=== PATIENT | male | born 1960 ===

== ENCOUNTER 2017-01-02 10:16 | Inpatient (IN) | payer MEDICARE, MEDICAID ==
[2017-01-02 10:16] VITALS: BMI 21.5
[2017-01-02] MEDS ORDERED: Piperacillin/Tazobact 3.375 GM in Sodium Chloride 0.9% 100 ML IVPB STA (11:08)
--- NOTE | 2017-01-02 11:14 | ED PDOC ---
HPI: General Adult Time Seen by Provider: 01/02/17 10:36 Chief Complaint (Nursing): Upper Extremity Problem/Injury History Per: Patient Additional Complaint(s): Pt. states on Wednesday he was at home doing some house work when he suddenly noticed he was bleeding from the R 5th digit. Pt. is uncertain as to how he received the cut. Reports that he's developed redness, swelling, and pain to the area extending to the R wrist since then. Denies fever, numbness, tingling. Past Medical History Reviewed: Historical Data, Nursing Documentation, Vital Signs Vital Signs: Last Vital Signs Temp 98.4 F 01/02/17 17:47 Pulse 91 H 01/02/17 17:47 Resp 18 01/02/17 17:47 BP 112/71 01/02/17 17:47 Pulse Ox 97 01/02/17 17:47 - Medical History PMH: Asthma, HTN, Hyperlipidemia Denies: Diabetes - Family History Family History: States: No Known Family Hx - Home Medications Home Medications: Ambulatory Orders Medication Instructions Recorded Patient Own Control [Patient Own 1 IH DAILY 01/02/17 Control] Patient Own Control [Patient Own 1 tab PO DAILY 01/02/17 Control] Patient Own Control [Patient Own 1 tab PO DAILY 01/02/17 Control] - Allergies Allergies/Adverse Reactions: Allergies Allergy/AdvReac Type Severity Reaction Status Date / Time No Known Allergies Allergy Verified 01/02/17 10:43 Review of Systems ROS Statement: Except As Marked, All Systems Reviewed And Found Negative Musculoskeletal: Positive for: Hand Pain Physical Exam - Physical Exam Appears: Positive for: Well, Non-toxic, No Acute Distress Pulses-Radial (L): 2+ Pulses-Radial (R): 2+ Extremity: Positive for: Other (R hand: 5th digit on dorsal surface on proximal phalanx with superficial abrasion with swelling, surrounding erythema, and fluctuance; erythema extends towards dorsum of hand and slightly on to wrist; unable to fully extend R 5th digit; cap refill < 2 seconds of R 5th digit) Neurologic/Psych: Positive for: Alert, Oriented - Laboratory Results Result Diagrams: 01/02/17 12:00 01/02/17 12:35 - ECG O2 Sat by Pulse Oximetry: 98 - Radiology X-Ray: Interpreted by Me (R hand x-ray) X-Ray Interpretation: No Acute Disease - Progress ED Course And Treament: Labs ordered. CT upper extremity of R hand ordered. Zosyn IV, vancomycin IV ordered. Blood culture ordered. Hand xray ordered. CT of R hand: Abscess in the dorsal subcutaneous tissues of the fifth finger. Case d/w Dr. Chance, hand youth nutritional monitor, who take pt. to OR tomorrow for I&D. Requests that pt. be NPO after midnight. Case d/w Dr. Cifuentes, covering for Dr. Ha, and arrangements made for admission. Disposition - Clinical Impression Clinical Impression: Tenosynovitis of finger, Cellulitis and abscess of unspecified digit - Patient ED Disposition Is Patient to be Admitted: Yes - Disposition Disposition Time: 16:30 Condition: STABLE
[2017-01-02] MEDS ORDERED: Vancomycin 1 g Inj ONE (11:19)
[2017-01-02 11:31] LABS: VENOUS BLOOD GAS BASE EXCESS -1.6 mmol/L (0.0-2.0); VENOUS BLOOD GAS PCO2 32 mmHg (40-60); VENOUS BLOOD PH 7.44 (7.32-7.43)
[2017-01-02] MEDS ORDERED: Piperacillin/Tazobact 3.375 gm Inj IVPB ONE (12:10)
[2017-01-02 12:13] LABS: BASO % 0.3 % (0.0-2.0); EOS # 1.3 K/uL (0.0-0.7); EOS % 9.2 % (0.0-4.0); HEMATOCRIT 42.9 % (35.0-51.0); LYMPH # 1.6 K/uL (1.0-4.3); LYMPH % 11.1 % (20.0-40.0); MEAN CELL VOLUME 92.6 fl (80.0-94.0); MEAN CORPUSCULAR HEMOGLOBIN 31.5 pg (27.0-31.0); MEAN PLATELET VOLUME 8.9 fl (7.2-11.7); MONO # 1.6 K/uL (0.0-0.8); MONO % 10.7 % (0.0-10.0); NEUT # 10.1 K/uL (1.8-7.0); NEUT % 68.7 % (50.0-75.0); RED CELL DISTRIBUTION WIDTH 12.8 % (11.5-14.5); WHITE BLOOD COUNT 14.7 K/uL (4.8-10.8)
[2017-01-02 12:27] LABS: ALB/GLOB RATIO 1.3 (1.0-2.1); ALKALINE PHOSPHATASE 84 U/L (38-126); AST/SGOT 94 U/L (17-59); BILIRUBIN,TOTAL 2.8 mg/dl (0.2-1.3); BLOOD UREA NITROGEN 18 mg/dl (9-20); CALCIUM 9.6 mg/dL (8.4-10.2); CARBON DIOXIDE 24 mmol/L (22-30); CHLORIDE 102 mmol/L (98-107); GFR AFRICAN-AMERICAN > 60; GLUCOSE,RANDOM 89 mg/dL (75-110); SODIUM 137 mmol/l (132-148); TOTAL PROTEIN 9.6 G/DL (6.3-8.2)
[2017-01-02 12:34] LABS: ALT/SGPT < 6 U/L (21-72); POTASSIUM 7.2 MMOL/L (3.6-5.0)
[2017-01-02] MEDS ORDERED: Iohexol 300 100 ML IJ ONE (12:41)
[2017-01-02] MEDS ORDERED: Sodium Chloride 0.9% 50 ML IV ONE (12:42)
--- NOTE | 2017-01-02 13:41 | RAD ---
PROCEDURE: Right Hand Radiographs. HISTORY: trauma COMPARISON: None. FINDINGS: BONES: No evidence of acute displaced fracture nor dislocation. The osseous structures appear intact. No cortical destructive changes. . JOINTS: Normal. No osteoarthritic changes. SOFT TISSUES: There appears to be soft tissue swelling right 5th finger. Findings could represent cellulitis. . Soft tissue swelling extends dorsally over the 5th metacarpal. No radiopaque foreign bodies. OTHER FINDINGS: None. IMPRESSION: No evidence of acute displaced fracture nor dislocation. The osseous structures appear intact with no cortical destructive changes. Soft tissue swelling left 5th finger the likely representing cellulitis. The soft tissue swelling that extends dorsally over the 5th metacarpal as well. Clinical correlation recommended. There are no radiopaque foreign body seen. .
[2017-01-02] MEDS: Piperacillin/Tazobact 3.375 GM in Sodium Chloride 0.9% 100 ML IVPB SCH (17:00)
--- NOTE | 2017-01-02 22:13 | CP.PCM.CON ---
History of Present Illness - History of Present Illness History of Present Illness: ORTHOPEDIC CONSULT NOTE 56 year old greenlandic speaking male seen at bedside concerning left hand redness and swelling. Pt states on Wednesday, while doing house work. he noteice a bleeding from the rigth 5th digit without a notable inciting event. Reports that he's developed redness, swelling, and pain to the area extending to the R wrist since then. Denies fever, chill, nausea, vomiting, numbness, or tingling to the area. Has noted some discharge from site prior to arrival though non recently. Past Patient History - Past Social History Smoking Status: Never Smoked - CARDIAC Hx Cardiac Disorders: Yes (HTN/ High Cholesterol) - PULMONARY Hx Respiratory Disorders: Yes (Asthma) - PSYCHIATRIC Hx Substance Use: No - ANESTHESIA Hx Anesthesia: No Hx Anesthesia Reactions: No Hx Malignant Hyperthermia: No Meds Allergies/Adverse Reactions: Allergies Allergy/AdvReac Type Severity Reaction Status Date / Time No Known Allergies Allergy Verified 01/02/17 10:43 - Medications Medications: Current Medications Piperacillin Sod/Tazobactam (Sod 3.375 gm/ Sodium Chloride) 100 mls @ 100 mls/ hr IVPB Q8H SHAYY Physical Exam - Constitutional Appears: Well, Non-toxic, No Acute Distress - Extremities Exam Additional comments: RIGHT HAND FOCUSED Pulses intact, and digits well perfused. Erythema and swelling localized to medial dorsal surface of Focal point of swelling, erythema, and callor runs from 5th digit proximal interphalangeal joint to 5th metacarpo-phalangeal joint. Stable Keratotic crust noted proximal to proximal interphalangeal joint. Absent and prominent portal of entry. Absent purulent discharge. Results - Vital Signs Recent Vital Signs: Last Vital Signs Temp 98.4 F 01/02/17 19:42 Pulse 91 H 01/02/17 19:42 Resp 18 01/02/17 19:42 BP 112/71 01/02/17 19:42 Pulse Ox 92 L 01/02/17 19:42 - Labs Result Diagrams: 01/02/17 12:00 01/02/17 12:35 Assessment & Plan - Assessment and Plan (Free Text) Assessment: 56 year old male with right hand cellulitis and potential abscess. Plan: PT seen and evaluated. Discussed with attending, Dr. Chance who endorsed the final plan. Chart, labs, and vitals reviewed. Afebrile, WBC=14.7K. Pt placed NPO. Pt to go to OR Wednesday morning for Right hand incision and drainage procedure. Medical clearance from primary provider requested. Continue pain control. Continue IV abx. - Date & Time Date: 01/02/17 Time: 22:13
[2017-01-03] MEDS: Piperacillin/Tazobact 3.375 GM in Sodium Chloride 0.9% 100 ML IVPB SCH ×3 (00:41→17:39)
[2017-01-03 08:07] LABS: BASO % 0.4 % (0.0-2.0); EOS # 1.6 K/uL (0.0-0.7); EOS % 12.3 % (0.0-4.0); HEMATOCRIT 42.4 % (35.0-51.0); LYMPH # 1.4 K/uL (1.0-4.3); LYMPH % 11.1 % (20.0-40.0); MEAN CELL VOLUME 93.4 fl (80.0-94.0); MEAN CORPUSCULAR HEMOGLOBIN 30.7 pg (27.0-31.0); MEAN CORPUSCULAR HGB CONC 32.8 g/dL (33.0-37.0); MEAN PLATELET VOLUME 8.6 fl (7.2-11.7); MONO # 1.3 K/uL (0.0-0.8); MONO % 10.6 % (0.0-10.0); NEUT # 8.2 K/uL (1.8-7.0); NEUT % 65.6 % (50.0-75.0); RED CELL DISTRIBUTION WIDTH 12.8 % (11.5-14.5); WHITE BLOOD COUNT 12.6 K/uL (4.8-10.8)
[2017-01-03 08:22] LABS: ALB/GLOB RATIO 1.2 (1.0-2.1); ALKALINE PHOSPHATASE 70 U/L (38-126); ALT/SGPT 42 U/L (21-72); AST/SGOT 39 U/L (17-59); BILIRUBIN,TOTAL 0.7 mg/dl (0.2-1.3); BLOOD UREA NITROGEN 20 mg/dl (9-20); CALCIUM 9.1 mg/dL (8.4-10.2); CARBON DIOXIDE 26 mmol/L (22-30); CHLORIDE 101 mmol/L (98-107); CHOLESTEROL 122 mg/dL (0-199); GFR AFRICAN-AMERICAN > 60; GLUCOSE,RANDOM 104 mg/dL (75-110); POTASSIUM 3.8 MMOL/L (3.6-5.0); SODIUM 137 mmol/l (132-148); TOTAL PROTEIN 7.3 G/DL (6.3-8.2)
[2017-01-03 08:25] LABS: PARTIAL THROMBOPLASTIN TIME 30.4 SECONDS (23.3-32.5)
[2017-01-03 08:28] LABS: T4 8.13 ug/dl (5.5-11.0)
[2017-01-03 08:42] LABS: THYROID STIMULATING HORMONE 0.94 mIU/ML (0.46-4.68)
[2017-01-03] MEDS ORDERED: Lidocaine 1% Inj (20ml) ONE (10:15)
[2017-01-03] MEDS ORDERED: Povidone Iodine Topical 10% Sol ONE (10:17)
--- NOTE | 2017-01-03 13:35 | CT ---
PROCEDURE: CT of the right hand dated 01/02/2017 HISTORY: attention 5th finger right hand COMPARISON: Correlation made with concurrent radiographs of the right hand. TECHNIQUE: Contiguous axial images of the right hand performed following intravenous injection of approximately 100 cc Omnipaque 300 contrast material. . Coronal and sagittal reformats were generated. . Note that a small metallic BB marker was placed of over the dorsal 5th finger at the site of perceived abnormality. This CT exam was performed using one or more of the following dose reduction techniques: Automated exposure control, adjustment of the mA and/or kV according to patient size, and/or use of iterative reconstruction technique. . FINDINGS: The current study reveals a somewhat ill-defined low-attenuation collection that measures approximately 27 mm x 8 mm x 6 mm within the dorsal soft tissues of the 5th finger (which extends over the length of the proximal phalanx ) consistent with a small abscess. There is surrounding edema/ infiltration and stranding likely representing a surrounding cellulitis. . The subjacent cortex appears intact without evidence of obvious cortical destructive changes. . No other of suspicious abscess collections. . No evidence of subcutaneous emphysema within the soft tissues. Impression: There is a small elliptical shaped at abscess collection within the dorsal soft tissues 5th finger extending the length of the proximal phalanx. Surrounding soft tissue edema/swelling and infiltration consistent with a surrounding cellulitis. No definitive cortical destructive changes. No evidence of subcutaneous emphysema
--- NOTE | 2017-01-03 17:08 | PROCN ---
DATE: 01/03/2017 REASON FOR PROCEDURE: A 56-year-old male who presented to Emergency Room with swelling, pain and mercy thema of his right fifth digit over the past few days, symptoms had progressively gotten worse as ful lness on the back of the finger and noticed drainage of pus. I was consulted to further evaluate and give recommendations. The patient was seen and examined. There was a palpable fluctuance over the dorsum of the fifth digit at the proximal phalanx consistent with abscess. CT scan confirmed a super ficial abscess. I recommended bedside incision and drainage and wound debridement. Risks were expla ined and included, but not limited to, bleeding, infection, tendon, nerve or vessel injury, instabili ty, chronic pain, potential need for additional surgery in the future, stiffness, The patient unders tood the above risks and elected to proceed. Informed consent was obtained. The finger was prepped and draped in standard surgical fashion. An incision was made over the dorsum of the proximal phalanx, which immediately showed drainage of pus. A hemostat was taken and bluntly dissected deep at the level of the fascia and the extensor tendon to break up pus pockets. About 5 mL of pus was drained. The wound was then copiously irrigated with normal saline. It was then packe d and sterile dressing was applied with Shannon and 4 x 4. The patient was recommended to do serial so aks with betadine and normal saline mixture. Continue IV antibiotics. Damaso Chance M.D. cc: [id number] TT: 01/03/2017 17:08:26 Confirmation # [id number] Dictation # [id number] en
[2017-01-03 23:09] LABS: FOLATE 13.7 ng/mL
[2017-01-04] MEDS: Piperacillin/Tazobact 3.375 GM in Sodium Chloride 0.9% 100 ML IVPB SCH ×3 (00:36→16:55)
[2017-01-04 07:24] LABS: HEMATOCRIT 40.8 % (35.0-51.0); MEAN CELL VOLUME 92.8 fl (80.0-94.0); MEAN CORPUSCULAR HEMOGLOBIN 31.2 pg (27.0-31.0); MEAN CORPUSCULAR HGB CONC 33.6 g/dL (33.0-37.0); RED CELL DISTRIBUTION WIDTH 12.7 % (11.5-14.5); WHITE BLOOD COUNT 9.9 K/uL (4.8-10.8)
[2017-01-04 07:34] LABS: ALB/GLOB RATIO 1.2 (1.0-2.1); ALKALINE PHOSPHATASE 90 U/L (38-126); ALT/SGPT 53 U/L (21-72); AST/SGOT 54 U/L (17-59); BILIRUBIN,TOTAL 0.5 mg/dl (0.2-1.3); BLOOD UREA NITROGEN 26 mg/dl (9-20); CALCIUM 9.2 mg/dL (8.4-10.2); CARBON DIOXIDE 25 mmol/L (22-30); CHLORIDE 104 mmol/L (98-107); GFR AFRICAN-AMERICAN > 60; GLUCOSE,RANDOM 97 mg/dL (75-110); POTASSIUM 3.9 MMOL/L (3.6-5.0); SODIUM 139 mmol/l (132-148); TOTAL PROTEIN 7.1 G/DL (6.3-8.2)
--- NOTE | 2017-01-04 10:36 | HP ---
This dictation is for 01/03/2017. CHIEF COMPLAINT: Swelling and redness of right hand. HISTORY OF PRESENT ILLNESS: This is a 56-year-old male without significant past medical history othe r than asthma, hypertension, elevated cholesterol who was working in his house, and had suddenly noti sivan the bleeding, which he does not remember how it happened, and over the next few days, the patient 's right hand started swelling and became very red and painful. So the patient was brought to the Em ergency Room and was admitted for further management. REVIEW OF SYSTEMS: Positive for generalized malaise, weakness, fatigue, feverish feeling, pain, swel ling, redness, and discharge from right hand. Review of systems otherwise is negative for headache, dizziness, syncope, loss of consciousness, chest pain, shortness of breath, nausea, vomiting, diarrhe a, constipation. Review of systems of all other organ systems is unremarkable. PAST MEDICAL HISTORY: Significant for hypertension, elevated cholesterol, and asthma. PAST SURGICAL HISTORY: Unremarkable. PERSONAL HISTORY: The patient is currently a nonsmoker, nondrinker, no substance abuse. MEDICATIONS: The patient is on some medications, which he does not recall the name. ALLERGIES: The patient is not allergic to any medication. FAMILY HISTORY: Noncontributory. PHYSICAL EXAMINATION: GENERAL: Well-built, well-nourished 56-year-old male in no acute distress. VITAL SIGNS: Temperature 98, pulse 92, respirations 18, blood pressure 111/77. HEENT: Pupils reacting to light. NECK: No JVD, no thyromegaly, no lymphadenopathy, no nystagmus. HEAD: Normocephalic, atraumatic skull. HEART: S1, S2 normal, regular. No significant murmur, gallop, or rub is heard. LUNGS: Shows good bilateral air exchange. No rales or rhonchi. ABDOMEN: Soft, nontender. No organomegaly, no fluid. Bowel sounds are plus. EXTREMITIES: Right upper extremity is significantly swollen, red, erythematous with purulent dischar ge from the pinky finger. There is no sign of acute distal neurovascular compromise. Extremity exam - otherwise, there was no edema, no calf swelling, no tenderness, no acute ischemia. CENTRAL NERVOUS SYSTEM: The patient is alert, awake, oriented x ____. There is no sign of any acute gross focal motor or sensory neurological deficit. DIAGNOSTIC DATA: Available diagnostic data reviewed. WBC 14.7, hemoglobin 14.6, hematocrit 42.9, platelets 266. Sodium 137, potassium 4, chloride 102, bi carb 24, BUN 18, creatinine 0.7. SMA-12 is unremarkable except bilirubin level of 2.8, and his pH al so is acceptable. CAT scan and x-rays of upper extremities reveal abscess. ADMITTING IMPRESSION: Sepsis syndrome, cellulitis of right upper extremity, right hand, and abscess of right hand, hypertension, elevated cholesterol, and asthma. PLAN: As ordered. Johnson Cifuentes MD cc: [id number] TT: 01/04/2017 10:35:47 jn
--- NOTE | 2017-01-04 11:06 | PN ---
DATE: 01/04/2017 SUBJECTIVE: The patient seen and examined. Interim events noted. Consults noted, appreciated. Heather gical intervention noted and appreciated. The patient had I and D done; tolerated procedure well. F eels better. No sign of complication. PHYSICAL EXAMINATION: GENERAL: The patient is in no acute distress. VITAL SIGNS: Stable. HEART: S1, S2 normal, regular. LUNGS: Good bilateral air exchange. ABDOMEN: Soft, nontender. EXTREMITIES: Right hand is in surgical dressing. No sign of distal complication. No edema, no calf swelling, no tenderness, no acute ischemia. CENTRAL NERVOUS SYSTEM: Essentially unchanged. DIAGNOSTIC DATA: Available diagnostic data reviewed. Overall, patient's general medical condition is stable and improving. Cellulitis is improving. Absc ess is ____. Johnson Cifuentes MD cc: [id number] TT: 01/04/2017 11:05:04 Confirmation # [id number] Dictation # [id number] padmaja
[2017-01-05] MEDS: Piperacillin/Tazobact 3.375 GM in Sodium Chloride 0.9% 100 ML IVPB SCH ×2 (00:59→08:30)
[2017-01-05 07:31] LABS: HEMATOCRIT 40.8 % (35.0-51.0); MEAN CELL VOLUME 93.2 fl (80.0-94.0); MEAN CORPUSCULAR HEMOGLOBIN 32.1 pg (27.0-31.0); MEAN CORPUSCULAR HGB CONC 34.4 g/dL (33.0-37.0); RED CELL DISTRIBUTION WIDTH 12.5 % (11.5-14.5); WHITE BLOOD COUNT 7.6 K/uL (4.8-10.8)
[2017-01-05 07:46] LABS: ALB/GLOB RATIO 1.2 (1.0-2.1); ALKALINE PHOSPHATASE 90 U/L (38-126); ALT/SGPT 59 U/L (21-72); AST/SGOT 44 U/L (17-59); BILIRUBIN,TOTAL 0.3 mg/dl (0.2-1.3); BLOOD UREA NITROGEN 26 mg/dl (9-20); CALCIUM 9.1 mg/dL (8.4-10.2); CARBON DIOXIDE 24 mmol/L (22-30); CHLORIDE 103 mmol/L (98-107); GFR AFRICAN-AMERICAN > 60; GLUCOSE,RANDOM 97 mg/dL (75-110); POTASSIUM 3.9 MMOL/L (3.6-5.0); SODIUM 137 mmol/l (132-148); TOTAL PROTEIN 7.5 G/DL (6.3-8.2)
--- NOTE | 2017-01-05 08:39 | HP ---
CHIEF COMPLAINT: Swelling and discharge of right hand. HISTORY OF PRESENT ILLNESS: This is a 56-year-old male, known case of hypertension, elevated cholest nilam, bronchial asthma who was working at his house and suddenly noticed bleeding from his right pink y finger, which patient does not recall related to any trauma and then over next few days, patient's hand started swelling and became very red, erythematous and painful, so patient was brought to [facility], where patient was found to have abscess and was admitted for further management. REVIEW OF SYSTEMS: Positive for right hand pain, generalized malaise, weakness, feverish feeling. O therwise, is negative for headache, dizziness, syncope, loss of consciousness, chest pain, shortness of breath, nausea, vomiting, diarrhea, constipation. All other organ systems unremarkable. PAST MEDICAL HISTORY: Significant for hypertension, bronchial asthma, elevated cholesterol. PAST SURGICAL HISTORY: Unremarkable. FAMILY HISTORY: Noncontributory. MEDICATIONS: As per reconciliation sheet, which was reviewed in order. PHYSICAL EXAMINATION: GENERAL: Well-built, well-nourished, 56-year-old male, in no acute distress. VITAL SIGNS: Temperature afebrile, pulse 91, respirations 18, blood pressure 120/80, saturation 97%. HEENT: Pupils reacting to light. No JVD, no thyromegaly, no lymphadenopathy, no nystagmus. Normoce phalic, atraumatic skull. HEART: S1, S2 normal, regular. No significant murmur, gallop or rub is heard. LUNGS: Shows good bilateral air exchange. No rales or rhonchi. ABDOMEN: Soft, nontender, no organomegaly, no fluid. Bowel sounds are plus. EXTREMITIES: Right upper extremity, patient has significant swelling, purulent discharge, tenderness and significant erythema, up to forearm. There is no sign of acute distal neurovascular compr omise. Otherwise, patient has no edema, no calf swelling, no tenderness, no acute ischemia. CENTRAL NERVOUS SYSTEM: Essentially unchanged and there is no sign of any acute gross focal, motor o r sensory neurological deficit. DIAGNOSTIC DATA: Available reviewed. WBC 14.7, hemoglobin 14.6, hematocrit 42.9, platelets . Venous blood gas shows pH 7.44, pCO2 48, pO2 32. Sodium 137, potassium 4, chloride 102, bicarb 24, B UN 18, creatinine 0.7. SMA-12 is unremarkable. Hand x-ray and CAT scan are consistent with hand abs cess. Surgical consult noted and appreciated. EKG is not available. If EKG is normal, patient is medicall y stable and in optimal condition for proposed surgery. There is no medical contraindication for sondra e. ADMITTING IMPRESSION: Sepsis syndrome, cellulitis of right hand, hypertension, elevated cholesterol, bronchial asthma. PLAN: As ordered. Johnson Cifuentes MD cc: [id number] TT: 01/03/2017 14:49:43 en
--- NOTE | 2017-01-05 14:12 | PQF GENQUE ---
Dr. Cifuentes, Sepsis Syndrome is listed in the draft H and P and then the term is dropped: if ruled in need further clarification of the term "Sepsis Syndrome"; no ICD-10 code for this term OR: Sepsis Syndrome ruled out Attending draft note of 01/04/17:he patient had I and D done; tolerated procedure well. No sign of complication. Cellulitis is improving. Abscess is ____. WBC: 12.6->14.7 Temp: 98.2->98.4->98.4->98->98.7-.99.7 Pulse:88->91->91->90->92->82->104 01/02/17@11:20: Blood culture prelim: no growth after 3 days 01/02/17@11:44:Blood culture prelim: no growth after 3 days Piperacillin IV.: Vancomycin IV D/Ivan This form is a permanent part of the medical record Clarification of your documentation is requested to better reflect the severity of illness and intensity of treatment of your patient. Indicators present [] Specify: [] [] Specify: [] [] Specify: [] [] Specify: [] Location in the medical record that reflects the above clinical findings: [] Treatment Provided: [] PHYSICIAN'S RESPONSE Based on your medical judgment of the clinical indicators outlined above please clarify the following: [] Practitioner response [] If unable to determine, please check the box, sign and date. Present On Admission (POA) Indicator: [] Present at the time of admission [] Not present at the time of admission [] Clinically Undetermined In responding to this query, please exercise your independent professional judgment. The fact that a question is asked does not imply that any particular answer is desired or expected. Thank you for your clarification on this documentation. If you have any questions please call. * Thank you, Samara Vela RN BSN ext. #[phone] MTDD
[2017-01-05] MEDS ORDERED: Povidone Iodine Topical 10% Sol ONE (15:48)
[2017-01-05 15:58] VITALS: BP 110/82; PULSE 71; RESP 18; TEMP 97.8; O2SAT 94
--- NOTE | 2017-01-06 10:13 | CARD ---
APPROVED REPORT EKG Measurement Heart [id number] <Conclusion> Normal sinus rhythm Incomplete right bundle branch block Borderline ECG
== END 2017-01-05 16:13 | disposition home or self-care (01) | DRG 580 ==
LOC: H.ER 10:16 → H.ERHOLD 16:51 → H.MEDSURG1 21:08
PROVIDERS: ADMIT Internal Medicine; ATTEND Internal Medicine
PROC: 0J9J0ZZ Drainage of Right Hand Subcutaneous Tissue and Fascia, Open Approach (ICD-10-PCS; principal; 2017-01-03)
PROC: 0L970ZZ Drainage of Right Hand Tendon, Open Approach (ICD-10-PCS; 2017-01-03)
DX: L03.113 Cellulitis of right upper limb (principal); L02.511 Cutaneous abscess of right hand; I10 Essential (primary) hypertension; M65.88 Other synovitis and tenosynovitis, other site; E78.00 Pure hypercholesterolemia, unspecified; J45.909 Unspecified asthma, uncomplicated; E78.5 Hyperlipidemia, unspecified